=== PATIENT | female | born 2000 | race African-American/Black ===

== ENCOUNTER 2022-10-13 14:01 | Emergency (ER) | payer BC, MEDICAID ==
[~2022-10-13] VITALS: Ht 162.6 cm; Wt 61.4 kg
[2022-10-13 14:12] VITALS: BP 112/58; PULSE 85; RESP 16; O2SAT 98
[2022-10-13] MEDS ORDERED: ACETAMINOPHEN 325MG TABLET PO ONE (16:30)
[2022-10-13 17:08] VITALS: TEMP 97.9
[2022-10-13] MEDS ORDERED: TOPUD PO (17:23)
[2022-10-13] MEDS ORDERED: NAP5EC PO (17:55)
== END 2022-10-13 18:09 | disposition home or self-care (01) ==
LOC: ER 14:42
DX: S10.93XA Contusion of unspecified part of neck, initial encounter (principal); E78.00 Pure hypercholesterolemia, unspecified; Y93.23 Activity, snow (alpine) (downhill) skiing, snowboarding, sledding, tobogganing and snow tubing; Y92.89 Other specified places as the place of occurrence of the external cause; Y99.8 Other external cause status
CPT/HCPCS: 72040; 99283